=== PATIENT | female | born 1940 | race Caucasian/White ===

== ENCOUNTER 2025-06-29 05:54 | Day surgery (SDC) | payer MEDICARE, OTHER ==
[~2025-06-29] VITALS: Ht 157.5 cm; Wt 56.8 kg
[~2025-06-29 05:54] MED LIST: CYCLOPENTOLATE HCL 1% 2 ML OPHTHALMIC SOLUTION ONE; HYALURONATE SOD 8.5MG/0.85ML 10 MG/ML SYRINGE IO ONE; KETOROLAC TROMETHAMINE 0.5% 5 ML OPHTHALMIC SOLUTION ONE; MOXIFLOXACIN HCL 0.5% 3 ML OPHTHALMIC SOLUTION ONE; PHENYLEPHRINE HCL 2.5% 2 ML OPHTHALMIC SOLUTION ONE; PrednisoLONE ACETATE 1% 5 ML OPHTHALMIC SUSPENSION OS ONE; RINGERS SOLUTION,LACTATED 500 ML IV ONE; TETRACAINE HCL/PF 0.5% 4 ML OPHTHALMIC SOLUTION ONE; TROPICAMIDE 1% 3 ML OPHTHALMIC SOLUTION ONE
[2025-06-29] MEDS ORDERED: PrednisoLONE ACETATE 1% 5 ML OPHTHALMIC SUSPENSION ONE (06:21)
[2025-06-29] MEDS: PHENYLEPHRINE HCL 2.5% 2 ML OPHTHALMIC SOLUTION OS SCH (07:07)
[2025-06-29] MEDS: TETRACAINE HCL/PF 0.5% 4 ML OPHTHALMIC SOLUTION OS SCH (07:07)
[2025-06-29] MEDS: CYCLOPENTOLATE HCL 1% 2 ML OPHTHALMIC SOLUTION OS SCH (07:08)
[2025-06-29] MEDS: PROPARACAINE HCL 0.5% 15 ML OPHTHALMIC SOLUTION OS ONE (07:08)
[2025-06-29] MEDS: KETOROLAC TROMETHAMINE 0.5% 5 ML OPHTHALMIC SOLUTION OS SCH (07:12)
[2025-06-29] MEDS: MOXIFLOXACIN HCL 0.5% 3 ML OPHTHALMIC SOLUTION OS SCH (07:12)
[2025-06-29] MEDS: TROPICAMIDE 1% 3 ML OPHTHALMIC SOLUTION OS SCH (07:12)
[2025-06-29] MEDS: TETRACAINE HCL/PF 0.5% 4 ML OPHTHALMIC SOLUTION OS ONE (07:43)
[2025-06-29] MEDS: RINGERS SOLUTION,LACTATED 500 ML IV ONE (07:45)
[2025-06-29] MEDS ORDERED: GABA-1181 PO (08:07)
[2025-06-29] MEDS ORDERED: ESCI-8 PO (08:07)
[2025-06-29] MEDS: BALANCED SALT 15 ML OPHTHALMIC IRRIG.SOLN ONE (08:26)
[2025-06-29] MEDS: LIDOCAINE/PF 1% 2 ML VIAL ONE (08:26)
[2025-06-29] MEDS: POVIDONE-IODINE 5% 30 ML OPHTHALMIC SOLUTION ONE (08:26)
[2025-06-29] MEDS: EPINEPHrine 1:1,000 [1 MG/ML] VIAL ONE (08:26)
[2025-06-29] MEDS: PROPARACAINE HCL 0.5% 15 ML OPHTHALMIC SOLUTION ONE (08:44)
[2025-06-29] MEDS: NEOMYCIN/POLYMYXIN B/DEXAMETH 3.5 GM OPHTHALMIC OINTMENT ONE (08:44)
[2025-06-29] MEDS ORDERED: FentaNYL CITRATE PF 100 MCG/2 ML VIAL ONE (12:00)
[2025-06-29] MEDS ORDERED: MIDAZOLAM HCL 2 MG/2 ML VIAL ONE (12:00)
== END 2025-06-29 10:30 | disposition home or self-care (01) ==
LOC: SDS 05:54
PROVIDERS: ATTEND Ophthalmology
DX: E11.36 Type 2 diabetes mellitus with diabetic cataract (principal); H25.12 Age-related nuclear cataract, left eye; I10 Essential (primary) hypertension; I69.361 Other paralytic syndrome following cerebral infarction affecting right dominant side; M19.90 Unspecified osteoarthritis, unspecified site; G20.A1 Parkinson's disease without dyskinesia, without mention of fluctuations; Z95.5 Presence of coronary angioplasty implant and graft; Z79.82 Long term (current) use of aspirin; Z79.899 Other long term (current) drug therapy; Z98.890 Other specified postprocedural states
CPT/HCPCS: 66984; 93005; J0169; J3490; J7120; V2632; J2250; J3010